=== PATIENT | male | born 1955 | race Caucasian/White ===

== ENCOUNTER 2019-08-18 06:51 | Emergency (ER) | payer MEDICARE ==
[2019-08-18] MEDS ORDERED: Sodium Phosphate,Monobasic/Sodium Phosphate,Dibasic Enema 133 ML Bottle RECTAL ONE (07:00)
--- NOTE | 2019-08-18 07:20 | EDM.PDOC ---
ED HPI GENERAL MEDICAL PROBLEM - General Chief Complaint: Abdominal Pain Stated Complaint: Constipated Time Seen by Provider: 08/18/19 07:00 Source of Information: Reports: Patient History Limitations: Reports: No Limitations - History of Present Illness INITIAL COMMENTS - FREE TEXT/NARRATIVE: Patient presents to ER with complaints of constipation. States had "too much cheese yesterday and I think that is my trigger". Has had issues off an on with constipation since he was a young child. Has episodes every 3 years or so that require enema or more intervention. Did try herbal tea and suppository at home with just a very small amount of stool. No nausea or vomiting. History of colon cancer but "not related". No recent blood in his stools or weight loss. Has lower quadrant cramping, "know what the problem is". NO fevers. Onset: Gradual Duration: Hour(s):, Constant Location: Reports: Abdomen Quality: Reports: Sharp, Stabbing Severity: Moderate Associated Symptoms: Denies: Chest Pain, Cough, Fever/Chills, Loss of Appetite, Nausea/Vomiting, Shortness of Breath Treatments RESIDENTIAL COLLECTIONS: Reports: Home Treatments Other Treatments RESIDENTIAL COLLECTIONS: tea, suppository - Related Data Allergies Allergy/AdvReac Type Severity Reaction Status Date / Time No Known Allergies Allergy Verified 08/18/19 07:07 Home Meds: Home Meds ALPRAZolam [Xanax] 0.5 mg PO TID PRN 05/16/17 [History] Cholecalciferol (Vitamin D3) [Vitamin D3] 1 cap PO DAILY 05/16/17 [History] Losartan/Hydrochlorothiazide [Hyzaar 100-25 Tablet] 2 each PO DAILY 05/16/17 [ History] Past Medical History HEENT History: Reports: Cataract Cardiovascular History: Reports: High Cholesterol, Hypertension, Other (See Below) Other Cardiovascular History: mitral valve prolapse Respiratory History: Reports: Sleep Apnea Gastrointestinal History: Reports: Colon Polyp Musculoskeletal History: Reports: Back Pain, Chronic, Osteoarthritis Neurological History: Reports: None Psychiatric History: Reports: Anxiety Endocrine/Metabolic History: Reports: Multinodular Thyroid, Obesity/BMI 30+, Other (See Below) Other Endocrine/Metabolic History: Menier's disease Hematologic History: Reports: None Oncologic (Cancer) History: Reports: Basal Cell Carcinoma, Colon, Other (See Below) Other Oncologic History: Stage 1 Colon CA 2011 Dermatologic History: Reports: None - Past Surgical History HEENT Surgical History: Reports: Cataract Surgery Cardiovascular Surgical History: Reports: None GI Surgical History: Reports: Colonoscopy, Other (See Below) Other GI Surgeries/Procedures: Lap colon resection Social & Family History - Tobacco Use Smoking Status *Q: Unknown Ever Smoked ED ROS GENERAL - Review of Systems Review Of Systems: See Below Constitutional: Denies: Fever, Chills, Malaise, Weakness, Decreased Appetite HEENT: Reports: No Symptoms Respiratory: Denies: Shortness of Breath, Cough Cardiovascular: Denies: Chest Pain, Edema, Lightheadedness Endocrine: Denies: Fatigue GI/Abdominal: Reports: Abdominal Pain, Constipation. Denies: Nausea, Vomiting : Denies: Dysuria Musculoskeletal: Reports: No Symptoms Skin: Reports: No Symptoms Neurological: Reports: No Symptoms Psychiatric: Reports: Anxiety ED EXAM, GI/ABD - Physical Exam Exam: See Below Exam Limited By: No Limitations General Appearance: Alert, WD/WN, Mild Distress Neck: Normal Inspection, Supple, Non-Tender Respiratory/Chest: No Respiratory Distress, Lungs Clear, Normal Breath Sounds Cardiovascular: Regular Rate, Rhythm GI/Abdominal Exam: Normal Bowel Sounds, Soft, Non-Tender (patient given enema prior to my arrival and is pain free now) Extremities: Normal Inspection, No Pedal Edema Neurological: Alert, Oriented Skin Exam: Warm, Dry Course - Vital Signs Last Recorded V/S: Last Vital Signs Temp 96.5 F 08/18/19 07:13 Pulse 99 08/18/19 07:13 Resp 16 08/18/19 07:13 BP 189/102 H 08/18/19 07:13 Pulse Ox 96 08/18/19 07:13 - Re-Assessments/Exams Free Text/Narrative Re-Assessment/Exam: 08/18/19 07:15 Patient doing well, good results from enema. "feeling much relief". Discussed possible other treatment options for constipation. Follow up if any concerns. Blood pressure 134/90, much improved. Has not yet taken his am blood pressure meds. Departure - Departure Time of Disposition: 07:15 Disposition: Home, Self-Care 01 Condition: Good Clinical Impression: Constipation - Discharge Information *PRESCRIPTION DRUG MONITORING PROGRAM REVIEWED*: No *COPY OF PRESCRIPTION DRUG MONITORING REPORT IN PATIENT GABY: No Referrals: Riaz Lomas MD [Primary Care Provider] - Additional Instructions: 1. Push fluids 2. Miralax or stool softener as needed 3. Follow up if any concerns or pain Sepsis Event Note - Evaluation Sepsis Screening Result: No Definite Risk - Focused Exam Vital Signs: Vital Signs Temp Pulse Resp BP Pulse Ox 08/18/19 07:13 96.5 F 99 16 189/102 H 96 Date Exam was Performed: 08/18/19 Time Exam was Performed: 07:15
== END 2019-08-18 07:20 | disposition home or self-care (01) ==
LOC: VM.ED 06:51
DX: K59.00 Constipation, unspecified (principal); I10 Essential (primary) hypertension; M19.90 Unspecified osteoarthritis, unspecified site; F41.9 Anxiety disorder, unspecified; E66.9 Obesity, unspecified; Z68.35 Body mass index [BMI] 35.0-35.9, adult; Z79.899 Other long term (current) drug therapy
CPT/HCPCS: 99283; A9270

== ENCOUNTER 2022-08-25 06:54 | Day surgery (SDC) | payer MEDICARE ==
[~2022-08-25 06:54] MED LIST: Lactated Ringers 1,000 ML IV SCH
[2022-08-25] MEDS ORDERED: Sodium Chloride 0.9% 10 ML Syringe FLUSH PRN (07:00)
[2022-08-25] MEDS ORDERED: Lactated Ringers 1,000 ML IV SCH (07:00)
[2022-08-25] MEDS ORDERED: Propofol 200 MG/20 ML SDV ONE ×2 (07:52→08:25)
[2022-08-25] MEDS ORDERED: fentaNYL 100 MCG/2 ML SDV ONE (07:52)
== END 2022-08-25 09:40 | disposition home or self-care (01) ==
LOC: VM.SDS 06:54
PROVIDERS: ATTEND Family Medicine
DX: Z12.11 Encounter for screening for malignant neoplasm of colon (principal); D12.6 Benign neoplasm of colon, unspecified; I10 Essential (primary) hypertension; E11.9 Type 2 diabetes mellitus without complications; E04.2 Nontoxic multinodular goiter; E66.9 Obesity, unspecified; F41.9 Anxiety disorder, unspecified; G47.33 Obstructive sleep apnea (adult) (pediatric); N40.0 Benign prostatic hyperplasia without lower urinary tract symptoms; M48.00 Spinal stenosis, site unspecified; E78.00 Pure hypercholesterolemia, unspecified; H81.09 Meniere's disease, unspecified ear; Z86.010 Personal history of colon polyps; Z98.890 Other specified postprocedural states; Z79.899 Other long term (current) drug therapy; Z68.35 Body mass index [BMI] 35.0-35.9, adult
CPT/HCPCS: 00811; 82947; 88305; J2704; J3010; J7120

== ENCOUNTER 2025-01-09 20:18 | Emergency (ER) | payer MEDICARE, BC | END 2025-01-09 21:35 | disposition home or self-care (01) | LOC: VM.ED 20:18 | DX: S93.401A Sprain of unspecified ligament of right ankle, initial encounter (principal); I10 Essential (primary) hypertension; E11.9 Type 2 diabetes mellitus without complications; E66.9 Obesity, unspecified; Z79.899 Other long term (current) drug therapy; Z79.82 Long term (current) use of aspirin; Z79.84 Long term (current) use of oral hypoglycemic drugs; Z68.32 Body mass index [BMI] 32.0-32.9, adult; X50.9XXA Other and unspecified overexertion or strenuous movements or postures, initial encounter; Y93.01 Activity, walking, marching and hiking | CPT/HCPCS: 73610-RT; 99283 ==

== ENCOUNTER 2025-05-11 16:53 | Emergency (ER) | payer MEDICARE, BC ==
[2025-05-11] MEDS ORDERED: Sodium Chloride 0.9% 10 ML Syringe FLUSH PRN (17:15)
[2025-05-11] MEDS: Nitroglycerin 0.4 MG Tab.SL SL ONE (17:15)
[2025-05-11 17:30] LABS: BASOPHILS ABSOLUTE AUTO 0.0 x10^3/uL (0.0-0.2); BASOPHILS PERCENT AUTO 0.2 % (0.2-1.2); EOSINOPHILS ABSOLUTE AUTO 0.1 x10^3/uL (0.0-0.5); EOSINOPHILS PERCENT AUTO 1.5 % (0.0-4.0); IMMATURE GRAN ABSOLUTE AUTO 0.01 x10^3/uL (0.00-0.07); IMMATURE GRAN PERCENT AUTO 0.10 % (0.00-0.43); LYMPHOCYTES ABSOLUTE AUTO 2.3 x10^3/uL (1.0-4.8); LYMPHOCYTES PERCENT AUTO 29.1 % (25.0-50.0); MONOCYTES ABSOLUTE AUTO 0.5 x10^3/uL (0.0-0.8); MONOCYTES PERCENT AUTO 5.9 % (2.0-11.0); NEUTROPHILS ABSOLUTE AUTO 5.1 x10^3/uL (1.8-7.7); NEUTROPHILS PERCENT AUTO 63.2 % (50.0-80.0); PLATELET COUNT,PLT 169 x10^3/uL (130-400); RED BLOOD CELL COUNT 4.94 x10^6/uL (4.5-6.0); WHITE BLOOD CELL COUNT,WBC 8.0 x10^3/uL (4.0-10.0)
[2025-05-11 17:57] LABS: A/G RATIO 1.06; ALANINE AMINOTRANSFERASE,ALT 35 U/L (16-63); BILIRUBIN TOTAL 0.5 mg/dL (0.2-1.0); BLOOD UREA NITROGEN,BUN 24 mg/dL (7-18); CARBON DIOXIDE,CO2 28 mmol/L (21-32); CHLORIDE,CL 102 mmol/L (98-107); CREATININE 1.1 mg/dL (0.70-1.30); GLUCOSE RANDOM 159 mg/dL (70-99); POTASSIUM,K 3.9 mmol/L (3.5-5.1); PRO B-TYPE NATRIUR PEPT,BNPPRO 59 pg/mL (<=125); PROTEIN TOTAL,TP 7.0 g/dL (6.4-8.2); SODIUM,NA 139 mmol/L (136-145)
[2025-05-11 17:58] LABS: ESTIMATED GFR 71 mL/min (>=60)
[2025-05-11 18:40] LABS: ASPARTATE AMNIOTRANSFERASE,AST 22 U/L (15-37)
== END 2025-05-11 19:06 | disposition home or self-care (01) ==
LOC: VM.ED 16:53
DX: R07.89 Other chest pain (principal); M25.512 Pain in left shoulder; I10 Essential (primary) hypertension; E78.00 Pure hypercholesterolemia, unspecified; E11.9 Type 2 diabetes mellitus without complications; Z79.899 Other long term (current) drug therapy; W01.198A Fall on same level from slipping, tripping and stumbling with subsequent striking against other object, initial encounter
CPT/HCPCS: 36415; 71045; 80053; 83735; 83880; 84484; 85025; 93005; 93010; 99284